=== PATIENT | male | born 1955 | race American Indian/Alaskan Native ===

== ENCOUNTER 2018-03-08 17:24 | Inpatient (IN) | payer MEDICARE ==
[2018-03-08] MEDS ORDERED: ASPIRIN PO ONE (18:10)
--- NOTE | 2018-03-08 18:13 | Emergency Department Report ---
ED Chest Pain HPI - General Chief Complaint: Chest Pain Stated Complaint: CHEST PAIN Time Seen by Provider: 03/08/18 18:00 Source: patient, EMS Mode of arrival: Stretcher Limitations: No Limitations - History of Present Illness Initial Comments: Patient is 62 years old with history of diabetes. Patient brought to the ED via EMS with a chief complaint of chest pain started after patient was started on a treadmill stress test by Dr. Sanaz wills. He describes his chest pain as left-sided chest pain pressure radiated to his left arm. Patient stated that his pain is completely resolved now. Patient was admitted last year for chest pain he had a cardiac cath by Dr. Reed which was negative. Patient denied any shortness of breath, fever or cough. MD Complaint: chest pain Pain Location: left chest Pain Radiation: LUE Severity scale (0 -10): 6 Quality: heaviness Consistency: intermittent Worsens With: exertion - Related Data Home Medications Medication Instructions Recorded Confirmed Last Taken Citalopram Hydrobromide [celeXA] 20 mg PO QDAY 01/23/18 01/23/18 Unknown Doxazosin Mesylate [Cardura] 8 mg PO QDAY 01/23/18 01/23/18 Unknown Previous Rx's Medication Instructions Recorded Last Taken Type Aspirin [Aspirin BABY CHEW TAB] 81 mg PO QDAY #30 tab.chew 01/25/18 Unknown Rx Clopidogrel [Plavix] 75 mg PO QDAY #30 tablet 01/25/18 Unknown Rx Lisinopril [Zestril TAB] 20 mg PO QDAY #30 tablet 01/25/18 Unknown Rx Metoprolol [Lopressor TAB] 50 mg PO BID #60 tablet 01/25/18 Unknown Rx Nitroglycerin [Nitrostat] 0.4 mg SL .Q5MIN PRN #10 tablet 01/25/18 Unknown Rx Pravastatin [Pravachol] 40 mg PO QHS #30 tablet 01/25/18 Unknown Rx glipiZIDE [Glipizide] 10 mg PO BID #60 tablet 01/25/18 Unknown Rx traZODone [Desyrel] 50 mg PO QHS #30 01/25/18 Unknown Rx Allergies Allergy/AdvReac Type Severity Reaction Status Date / Time No Known Allergies Allergy Verified 08/22/14 14:47 Heart Score - HEART Score History: Moderately suspicious EKG: Non-specific Age: 45-65 Risk factors: 1-2 risk factors Troponin: < normal limit HEART Score: 4 - Critical Actions Critical Actions: 4-6 pts:12-16.6% risk of adverse cardiac event. Should be admitted ED Review of Systems ROS: Stated complaint: CHEST PAIN Other details as noted in HPI Comment: All other systems reviewed and negative Constitutional: denies: chills, fever Respiratory: denies: cough, orthopnea, shortness of breath, SOB with exertion, wheezing Cardiovascular: chest pain. denies: palpitations, dyspnea on exertion Gastrointestinal: denies: abdominal pain, nausea, vomiting, diarrhea, constipation, hematemesis, melena, hematochezia Musculoskeletal: denies: back pain Neurological: denies: headache, weakness, numbness, paresthesias, confusion, abnormal gait ED Past Medical Hx - Past Medical History Hx Hypertension: Yes Hx Diabetes: Yes - Social History Smoking Status: Never Smoker Substance Use Type: None - Medications Home Medications: Home Medications Medication Instructions Recorded Confirmed Last Taken Type Citalopram Hydrobromide [celeXA] 20 mg PO QDAY 01/23/18 01/23/18 Unknown History Doxazosin Mesylate [Cardura] 8 mg PO QDAY 01/23/18 01/23/18 Unknown History Aspirin [Aspirin BABY CHEW TAB] 81 mg PO QDAY #30 tab.chew 01/25/18 Unknown Rx Clopidogrel [Plavix] 75 mg PO QDAY #30 tablet 01/25/18 Unknown Rx Lisinopril [Zestril TAB] 20 mg PO QDAY #30 tablet 01/25/18 Unknown Rx Metoprolol [Lopressor TAB] 50 mg PO BID #60 tablet 01/25/18 Unknown Rx Nitroglycerin [Nitrostat] 0.4 mg SL .Q5MIN PRN #10 tablet 01/25/18 Unknown Rx Pravastatin [Pravachol] 40 mg PO QHS #30 tablet 01/25/18 Unknown Rx glipiZIDE [Glipizide] 10 mg PO BID #60 tablet 01/25/18 Unknown Rx traZODone [Desyrel] 50 mg PO QHS #30 01/25/18 01/23/18 Unknown Rx ED Physical Exam - General Limitations: No Limitations General appearance: alert, in no apparent distress - Head Head exam: Present: atraumatic, normocephalic, normal inspection - Eye Eye exam: Present: normal appearance, PERRL - ENT ENT exam: Present: normal exam, normal orophraynx, mucous membranes moist - Neck Neck exam: Present: normal inspection, full ROM. Absent: tenderness, meningismus, lymphadenopathy, thyromegaly - Respiratory Respiratory exam: Present: normal lung sounds bilaterally. Absent: respiratory distress, wheezes, rales, rhonchi, stridor, chest wall tenderness, accessory muscle use, decreased breath sounds, prolonged expiratory - Cardiovascular Cardiovascular Exam: Present: regular rate, normal rhythm, normal heart sounds - GI/Abdominal GI/Abdominal exam: Present: soft, normal bowel sounds. Absent: distended, tenderness, guarding, rebound, rigid, organomegaly, mass, bruit, pulsatile mass - Back Exam Back exam: Present: normal inspection, full ROM. Absent: CVA tenderness (R), CVA tenderness (L), muscle spasm, paraspinal tenderness, vertebral tenderness, rash noted - Neurological Exam Neurological exam: Present: alert, oriented X3, CN II-XII intact, normal gait, reflexes normal - Skin Skin exam: Present: warm, intact, normal color ED Course Vital Signs 03/08/18 17:45 Temperature 97.8 F Pulse Rate 68 Respiratory 16 Rate Blood Pressure 135/89 [Left] O2 Sat by Pulse 98 Oximetry ED Medical Decision Making - Lab Data Result diagrams: 03/08/18 18:16 03/08/18 18:16 - EKG Data -: EKG Interpreted by [facility] EKG shows normal: sinus rhythm Rate: normal - EKG Data Interpretation: no acute changes - Radiology Data Radiology results: report reviewed - Medical Decision Making Mr Chowdhury is 62 years old with history of diabetes. Patient brought to the ED via EMS with a chief complaint of chest pain started after patient was started on a treadmill stress test by Dr. Sanaz wills. He describes his chest pain as left-sided chest pain pressure radiated to his left arm. Patient stated that his pain is completely resolved now. Patient was admitted last year for chest pain he had a cardiac cath by Dr. Reed which was negative. Patient denied any shortness of breath, fever or cough. Patient is chest pain-free now. Patient EKG did not show any acute finding. Troponin is negative so far. I discussed the patient is Dr. Osman, he agreed to admit the patient is service. Critical Care Time: Yes Critical care time in (mins) excluding proc time.: 30 Critical care attestation.: If time is entered above; I have spent that time in minutes in the direct care of this critically ill patient, excluding procedure time. ED Disposition Clinical Impression: Chest pain Disposition: 09 OP ADMIT IP TO THIS HOSP Is pt being admited?: Yes Condition: Stable Instructions: Chest Pain (ED) Referrals: PRIMARY CARE, [Primary Care Provider] - 3-5 Days
[2018-03-08 18:23] LABS: Basophils # (Auto) 0.1 K/mm3 (0.0-0.1); Basophils % (Auto) 1.4 % (0.0-1.8); Eosinophils # (Auto) 0.1 K/mm3 (0.0-0.4); Eosinophils % (Auto) 3.6 % (0.0-4.3); Hematocrit 48.2 % (35.5-45.6); Hemoglobin 16.2 gm/dl (11.8-15.2); Lymphocytes # (Auto) 1.4 K/mm3 (1.2-5.4); Lymphocytes % (Auto) 35.5 % (13.4-35.0); Mean Corpuscular HGB Conc 34 % (32-34); Mean Corpuscular Hemoglobin 30 pg (28-32); Mean Corpuscular Volume 90 fl (84-94); Monocytes # (Auto) 0.3 K/mm3 (0.0-0.8); Platelet Count 193 K/mm3 (140-440); Red Blood Count 5.36 M/mm3 (3.65-5.03); Red Cell Distribution Width 13.5 % (13.2-15.2)
[2018-03-08 18:32] LABS: INR 0.95 (0.87-1.13)
[2018-03-08 18:33] LABS: Partial Thromboplastin Time 24.8 Sec. (24.2-36.6)
[2018-03-08 18:45] LABS: Alanine Aminotransferase 14 units/L (7-56); Albumin 4.3 g/dL (3.9-5); BUN/Creatinine Ratio 14; Blood Urea Nitrogen 14 mg/dL (9-20); Calcium 9.3 mg/dL (8.4-10.2); Hemolysis Index 17; Lipase 24 units/L (13-60)
--- NOTE | 2018-03-08 20:03 | XRay Report ---
FINAL REPORT EXAM: XR CHEST ROUTINE 2V HISTORY: Chest Pain TECHNIQUE: Frontal and lateral chest x-ray. PRIORS: 24 January 2018. FINDINGS: Cardiac and mediastinal silhouette within normal limits. Lungs are normally expanded. No significant vascular congestion. No focal consolidation, apparent pleural effusion or pneumothorax. Bony thorax grossly unremarkable. IMPRESSION: 1. No acute findings.
[2018-03-08] MEDS ORDERED: ASPIRIN ONE (20:36)
--- NOTE | 2018-03-08 22:04 | History and Physical Report ---
History of Present Illness Date of examination: 03/08/18 Date of admission: 03/08/18 20:03 Chief complaint: Chest pain during stress test at [facility] History of present illness: History of Present Illness: 62 years old with history of diabetes brought to the ED via EMS with a chief complaint of chest pain started after patient was started on a treadmill stress test by Dr. Anaya's office. He describes his chest pain as left-sided chest pain pressure radiated to his left arm. Patient stated that his pain is completely resolved now. Patient was admitted last year for chest pain and had a cardiac cath by Dr. Gregory which was negative. Patient denied any shortness of breath, fever or cough.Recent cath in February Past Medical History Hx Hypertension: Yes Hx Diabetes: Yes Social History Smoking Status: Never Smoker Substance Use Type: None Surgical history N/a Family History Htn - Medications Home Medications: Home Medications Medication Instructions Recorded Confirmed Last Taken Type Citalopram Hydrobromide [celeXA] 20 mg PO QDAY 01/23/18 01/23/18 Unknown History Doxazosin Mesylate [Cardura] 8 mg PO QDAY 01/23/18 01/23/18 Unknown History Aspirin [Aspirin BABY CHEW TAB] 81 mg PO QDAY #30 tab.chew 01/25/18 Unknown Rx Clopidogrel [Plavix] 75 mg PO QDAY #30 tablet 01/25/18 Unknown Rx Lisinopril [Zestril TAB] 20 mg PO QDAY #30 tablet 01/25/18 Unknown Rx Metoprolol [Lopressor TAB] 50 mg PO BID #60 tablet 01/25/18 Unknown Rx Nitroglycerin [Nitrostat] 0.4 mg SL .Q5MIN PRN #10 tablet 01/25/18 Unknown Rx Pravastatin [Pravachol] 40 mg PO QHS #30 tablet 01/25/18 Unknown Rx glipiZIDE [Glipizide] 10 mg PO BID #60 tablet 01/25/18 Unknown Rx traZODone [Desyrel] 50 mg PO QHS #30 01/25/18 01/23/18 Unknown Rx Review of Systems ROS: Stated complaint: CHEST PAIN Other details as noted in HPI Comment: All other systems reviewed and negative Constitutional: denies: chills, fever Respiratory: denies: cough, orthopnea, shortness of breath, SOB with exertion, wheezing Cardiovascular: chest pain. denies: palpitations, dyspnea on exertion Gastrointestinal: denies: abdominal pain, nausea, vomiting, diarrhea, constipation, hematemesis, melena, hematochezia Musculoskeletal: denies: back pain Neurological: denies: headache, weakness, numbness, paresthesias, confusion, abnormal gait Medications and Allergies Allergies Allergy/AdvReac Type Severity Reaction Status Date / Time No Known Allergies Allergy Verified 08/22/14 14:47 Home Medications Medication Instructions Recorded Confirmed Last Taken Type Citalopram Hydrobromide [celeXA] 20 mg PO QDAY 01/23/18 03/08/18 Unknown History Doxazosin Mesylate [Cardura] 8 mg PO QDAY 01/23/18 03/08/18 Unknown History Aspirin [Aspirin BABY CHEW TAB] 81 mg PO QDAY #30 tab.chew 01/25/18 03/08/18 Unknown Rx Clopidogrel [Plavix] 75 mg PO QDAY #30 tablet 01/25/18 03/08/18 Unknown Rx Lisinopril [Zestril TAB] 20 mg PO QDAY #30 tablet 01/25/18 03/08/18 Unknown Rx Metoprolol [Lopressor TAB] 50 mg PO BID #60 tablet 01/25/18 03/08/18 Unknown Rx Nitroglycerin [Nitrostat] 0.4 mg SL .Q5MIN PRN #10 tablet 01/25/18 03/08/18 Unknown Rx Pravastatin [Pravachol] 40 mg PO QHS #30 tablet 01/25/18 03/08/18 Unknown Rx glipiZIDE [Glipizide] 10 mg PO BID #60 tablet 01/25/18 03/08/18 Unknown Rx traZODone [Desyrel] 50 mg PO QHS #30 01/25/18 03/08/18 Unknown Rx Exam - Constitutional Vitals: Temp Pulse Resp BP Pulse Ox 97.8 F 78 18 147/78 100 03/08/18 17:45 03/08/18 22:01 03/08/18 22:01 03/08/18 22:01 03/08/18 22:01 General appearance: Present: no acute distress, well-nourished - EENT Eyes: Present: PERRL ENT: hearing intact, clear oral mucosa - Neck Neck: Present: supple, normal ROM - Respiratory Respiratory effort: normal Respiratory: bilateral: CTA - Cardiovascular Heart rate: 78 Rhythm: regular Heart Sounds: Present: S1 & S2. Absent: rub, click - Extremities Extremities: no ischemia, pulses intact, pulses symmetrical, No edema Peripheral Pulses: within normal limits - Abdominal General gastrointestinal: Present: soft, non-tender, non-distended, normal bowel sounds Male genitourinary: Present: normal - Rectal Rectal Exam: deferred - Integumentary Integumentary: Present: clear, warm, dry - Musculoskeletal Musculoskeletal: gait normal, strength equal bilaterally - Psychiatric Psychiatric: appropriate mood/affect, intact judgment & insight - Neurologic Neurologic: CNII-XII intact, moves all extremities - Allied Health Allied health notes reviewed: nursing, case management Results - Labs CBC & Chem 7: 03/09/18 04:23 03/09/18 04:23 Labs: Laboratory Last Values WBC 4.0 K/mm3 (4.5-11.0) L 03/08/18 18:16 RBC 5.36 M/mm3 (3.65-5.03) H 03/08/18 18:16 Hgb 16.2 gm/dl (11.8-15.2) H 03/08/18 18:16 Hct 48.2 % (35.5-45.6) H 03/08/18 18:16 MCV 90 fl (84-94) 03/08/18 18:16 MCH 30 pg (28-32) 03/08/18 18:16 MCHC 34 % (32-34) 03/08/18 18:16 RDW 13.5 % (13.2-15.2) 03/08/18 18:16 Plt Count 193 K/mm3 (140-440) 03/08/18 18:16 Lymph % (Auto) 35.5 % (13.4-35.0) H 03/08/18 18:16 [place] % (Auto) 7.0 % (0.0-7.3) 03/08/18 18:16 Eos % (Auto) 3.6 % (0.0-4.3) 03/08/18 18:16 Baso % (Auto) 1.4 % (0.0-1.8) 03/08/18 18:16 Lymph # 1.4 K/mm3 (1.2-5.4) 03/08/18 18:16 [place] # 0.3 K/mm3 (0.0-0.8) 03/08/18 18:16 Eos # 0.1 K/mm3 (0.0-0.4) 03/08/18 18:16 Baso # 0.1 K/mm3 (0.0-0.1) 03/08/18 18:16 Seg Neutrophils % 52.5 % (40.0-70.0) 03/08/18 18:16 Seg Neutrophils # 2.1 K/mm3 (1.8-7.7) 03/08/18 18:16 PT 13.2 Sec. (12.2-14.9) 03/08/18 18:16 INR 0.95 (0.87-1.13) 03/08/18 18:16 APTT 24.8 Sec. (24.2-36.6) 03/08/18 18:16 D-Dimer 158.93 ng/mlDDU (0-234) 03/08/18 18:16 Sodium 139 mmol/L (137-145) 03/08/18 18:16 Potassium 4.3 mmol/L (3.6-5.0) 03/08/18 18:16 Chloride 99.8 mmol/L (98-107) 03/08/18 18:16 Carbon Dioxide 28 mmol/L (22-30) 03/08/18 18:16 Anion Gap 16 mmol/L 03/08/18 18:16 BUN 14 mg/dL (9-20) 03/08/18 18:16 Creatinine 1.0 mg/dL (0.8-1.5) 03/08/18 18:16 Estimated GFR > 60 ml/min 03/08/18 18:16 BUN/Creatinine Ratio 14 % 03/08/18 18:16 Glucose 197 mg/dL (75-100) H 03/08/18 18:16 Calcium 9.3 mg/dL (8.4-10.2) 03/08/18 18:16 Total Bilirubin 0.50 mg/dL (0.1-1.2) 03/08/18 18:16 AST 14 units/L (5-40) 03/08/18 18:16 ALT 14 units/L (7-56) 03/08/18 18:16 Alkaline Phosphatase 83 units/L (35-129) 03/08/18 18:16 Troponin T < 0.010 ng/mL (0.00-0.029) 03/08/18 18:16 Total Protein 7.7 g/dL (6.3-8.2) 03/08/18 18:16 Albumin 4.3 g/dL (3.9-5) 03/08/18 18:16 Albumin/Globulin Ratio 1.3 % 03/08/18 18:16 Lipase 24 units/L (13-60) 03/08/18 18:16 Short CBC 03/08/18 03/09/18 Range/Units 18:16 04:23 WBC 4.0 L 3.1 L (4.5-11.0) K/mm3 Hgb 16.2 H 15.5 H (11.8-15.2) gm/dl Hct 48.2 H 44.6 (35.5-45.6) % Plt Count 193 191 (140-440) K/mm3 BMP 03/08/18 03/09/18 18:16 04:23 Sodium 139 140 Potassium 4.3 4.0 Chloride 99.8 104.0 Carbon Dioxide 28 26 BUN 14 12 Creatinine 1.0 0.8 Glucose 197 H 186 H Calcium 9.3 8.5 Cardiac Enzymes 03/08/18 03/09/18 03/09/18 Range/Units 18:16 00:01 04:23 Troponin T < 0.010 < 0.010 < 0.010 (0.00-0.029) ng/mL Liver Function 03/08/18 03/09/18 Range/Units 18:16 04:23 Total Bilirubin 0.50 0.40 (0.1-1.2) mg/dL AST 14 14 (5-40) units/L ALT 14 12 (7-56) units/L Alkaline Phosphatase 83 79 (35-129) units/L Albumin 4.3 3.7 L (3.9-5) g/dL Assessment and Plan Advance Directives: Yes (Full code) VTE prophylaxis?: Chemical Plan of care discussed with patient/family: Yes - Patient Problems (1) Chest pain Current Visit: Yes Status: Acute Qualifiers: Chest pain type: chest pain due to myocardial ischemia Ischemic chest pain type: stable angina pectoris Qualified Code(s): I20.8 - Other forms of angina pectoris Plan to address problem: Will defer to cardiolgy reg Streess test /Cath Lexiscan not ordered (2) HTN (hypertension) Current Visit: Yes Status: Chronic Qualifiers: Hypertension type: essential hypertension Qualified Code(s): I10 - Essential (primary) hypertension Plan to address problem: Cont antihypertensives (3) HLD (hyperlipidemia) Current Visit: Yes Status: Chronic Qualifiers: Hyperlipidemia type: mixed hyperlipidemia Qualified Code(s): E78.2 - Mixed hyperlipidemia Plan to address problem: Cont statins (4) T2DM (type 2 diabetes mellitus) Current Visit: Yes Status: Chronic Qualifiers: Diabetes mellitus jail insulin use: without jail use Plan to address problem: Cont oral Hypoglycemics and coverage (5) Depression Current Visit: Yes Status: Chronic Qualifiers: Depression Type: unspecified Qualified Code(s): F32.9 - Major depressive disorder, single episode, unspecified Plan to address problem: Cont antidepressants (6) DVT prophylaxis Current Visit: Yes Status: Acute Plan to address problem: On Lovenox GI prophylaxis initiated
[2018-03-08] MEDS ORDERED: NITROSTAT SL PRN (23:44)
[2018-03-08] MEDS ORDERED: NACL 0.9% 1000 ML 1,000 ML IV SCH (23:45)
[2018-03-08] MEDS ORDERED: PERCOCET 5/325 PO PRN (23:46)
[2018-03-08] MEDS ORDERED: TYLENOL PO PRN (23:46)
[2018-03-08] MEDS ORDERED: MORPHINE IV PRN (23:46)
[2018-03-08] MEDS ORDERED: SODIUM CHLORIDE FLUSH SYRINGE 10 ML IV PRN (23:46)
[2018-03-08] MEDS ORDERED: DILAUDID IV PRN (23:46)
[2018-03-08] MEDS ORDERED: ZOFRAN IV PRN (23:46)
[2018-03-09] MEDS: GLUCOTROL PO SCH ×3 (01:35→16:51)
[2018-03-09 05:41] LABS: Hematocrit 44.6 % (35.5-45.6); Hemoglobin 15.5 gm/dl (11.8-15.2); Mean Corpuscular HGB Conc 35 % (32-34); Mean Corpuscular Hemoglobin 31 pg (28-32); Mean Corpuscular Volume 89 fl (84-94); Platelet Count 191 K/mm3 (140-440); Red Blood Count 5.03 M/mm3 (3.65-5.03); Red Cell Distribution Width 13.5 % (13.2-15.2)
[2018-03-09 06:19] LABS: Alanine Aminotransferase 12 units/L (7-56); Albumin 3.7 g/dL (3.9-5); BUN/Creatinine Ratio 15; Blood Urea Nitrogen 12 mg/dL (9-20); Calcium 8.5 mg/dL (8.4-10.2); Hemolysis Index 6
[2018-03-09 07:55] LABS: Basophils % (Manual) 0 % (0.0-1.8); Total Cells Counted 100
[2018-03-09 07:57] LABS: Anisocytosis 1+; Platelet Estimate Consistent w Auto; Poikilocytosis 1+
[2018-03-09 07:58] LABS: Ovalocytes Few
[2018-03-09] MEDS ORDERED: LOPRESSOR PO SCH (10:00)
[2018-03-09] MEDS ORDERED: CARDURA PO SCH (10:00)
[2018-03-09] MEDS ORDERED: ZESTRIL PO SCH (10:00)
[2018-03-09] MEDS: celeXA PO SCH (10:32)
[2018-03-09] MEDS: PLAVIX PO SCH (10:33)
[2018-03-09] MEDS: BABY ASPIRIN PO SCH (10:33)
[2018-03-09] MEDS: SODIUM CHLORIDE FLUSH SYRINGE 10 ML IV SCH ×2 (10:34→21:11)
--- NOTE | 2018-03-09 11:47 | Consultation ---
History of Present Illness Consult date: 03/09/18 Requesting physician: MANAV KEY Consult reason: chest pain History of present illness: The patient has a chronic history of exertional precordial chest pain. In fact , he was admitted in January 2018 with chest pain and positive cardiac enzymes. Coronary angiography at that time revealed normal coronary arteries. Ejection fraction was 55-60%. Since his discharge, he has continued to experience exertional chest pain. He apparently complained to his electrical prospecting engineer, Dr. Gregory, about palpitations. He was scheduled to undergo a treadmill exercise stress test yesterday to assess for possible arrhythmias during exercise. At about 4 minutes into the test, he developed chest pain leading to termination of the test which persisted into the late recovery phase. His stress EKG was reportedly negative for ischemia at the stress level obtained. Past History Past Medical History: acute [place] (NSTEMI 01/28.), diabetes, hypertension, other ( Normal coronary arteries in January 2018 with percent EF of 55-60%.) Past Surgical History: No surgical history Social history: (has 1 child). denies: smoking, alcohol abuse Family history: no significant family history Medications and Allergies Allergies Allergy/AdvReac Type Severity Reaction Status Date / Time No Known Allergies Allergy Verified 08/22/14 14:47 Home Medications Medication Instructions Recorded Confirmed Last Taken Type Citalopram Hydrobromide [celeXA] 20 mg PO QDAY 01/23/18 03/08/18 Unknown History Doxazosin Mesylate [Cardura] 8 mg PO QDAY 01/23/18 03/08/18 Unknown History Aspirin [Aspirin BABY CHEW TAB] 81 mg PO QDAY #30 tab.chew 01/25/18 03/08/18 Unknown Rx Clopidogrel [Plavix] 75 mg PO QDAY #30 tablet 01/25/18 03/08/18 Unknown Rx Lisinopril [Zestril TAB] 20 mg PO QDAY #30 tablet 01/25/18 03/08/18 Unknown Rx Metoprolol [Lopressor TAB] 50 mg PO BID #60 tablet 01/25/18 03/08/18 Unknown Rx Nitroglycerin [Nitrostat] 0.4 mg SL .Q5MIN PRN #10 tablet 01/25/18 03/08/18 Unknown Rx Pravastatin [Pravachol] 40 mg PO QHS #30 tablet 01/25/18 03/08/18 Unknown Rx glipiZIDE [Glipizide] 10 mg PO BID #60 tablet 01/25/18 03/08/18 Unknown Rx traZODone [Desyrel] 50 mg PO QHS #30 01/25/18 03/08/18 Unknown Rx Active Meds: Active Medications Acetaminophen (Tylenol) 650 mg PO Q4H PRN PRN Reason: Pain MILD(1-3)/Fever >100.5/DENT Aspirin (Baby Aspirin) 81 mg PO QDAY [facility] Last Admin: 03/09/18 10:33 Dose: 81 mg Citalopram Hydrobromide (Celexa) 20 mg PO QDAY [facility] Last Admin: 03/09/18 10:32 Dose: 20 mg Clopidogrel Bisulfate (Plavix) 75 mg PO QDAY [facility] Last Admin: 03/09/18 10:33 Dose: 75 mg Doxazosin Mesylate (Cardura) 8 mg PO QDAY [facility] Last Admin: 03/09/18 10:32 Dose: 8 mg Enoxaparin Sodium (Lovenox) 40 mg SUB-Q QDAY@2200 [facility] Glipizide (Glucotrol) 10 mg PO BIDDIAB [facility] Last Admin: 03/09/18 08:00 Dose: 10 mg Hydromorphone HCl (Dilaudid) 0.5 mg IV Q3H PRN PRN Reason: Pain , Severe (7-10) Sodium Chloride (Nacl 0.9% 1000 Ml) 1,000 mls @ 42 mls/hr IV DIRECT [facility] Insulin Human Lispro (Humalog) 0 unit SUB-Q [facility]; Protocol Lisinopril (Zestril) 20 mg PO QDAY [facility] Last Admin: 03/09/18 10:33 Dose: 20 mg Metoprolol Tartrate (Lopressor) 50 mg PO BID [facility] Last Admin: 03/09/18 10:33 Dose: 50 mg Morphine Sulfate (Morphine) 2 mg IV Q4H PRN PRN Reason: Pain, Moderate (4-6) Nitroglycerin (Nitrostat) 0.4 mg SL .Q5MIN PRN PRN Reason: Chest Pain Ondansetron HCl (Zofran) 4 mg IV Q8H PRN PRN Reason: Nausea And Vomiting Oxycodone/Acetaminophen (Percocet 5/325) 1 tab PO Q6H PRN PRN Reason: Pain, Moderate (4-6) Pravastatin Sodium (Pravachol) 40 mg PO QHS [facility] Sodium Chloride (Sodium Chloride Flush Syringe 10 Ml) 10 ml IV BID [facility] Last Admin: 03/09/18 10:34 Dose: 10 ml Sodium Chloride (Sodium Chloride Flush Syringe 10 Ml) 10 ml IV PRN PRN PRN Reason: LINE FLUSH Trazodone HCl (Desyrel) 50 mg PO QHS [facility] Review of Systems Constitutional: no fever, no chills Ears, nose, mouth and throat: no ear pain, no ear discharge, no sore throat Cardiovascular: chest pain, no shortness of breath Respiratory: no cough, no hemoptysis Gastrointestinal: no abdominal pain, no nausea, no vomiting, no diarrhea, no constipation Genitourinary Male: no dysuria, no urinary frequency Rectal: no pain, no bleeding Musculoskeletal: no neck stiffness, no neck pain, no myalgias Integumentary: no rash, no pruritis Neurological: no weakness, no parathesias, no headaches Endocrine: no cold intolerance, no heat intolerance Hematologic/Lymphatic: no easy bruising, no easy bleeding Allergic/Immunologic: no urticaria, no wheezing Physical Examination Vital Signs Last Vital Signs Temp 97.8 F 03/09/18 11:11 Pulse 81 03/09/18 11:11 Resp 20 03/09/18 11:11 BP 147/98 03/09/18 11:11 Pulse Ox 97 03/09/18 11:11 General appearance: no acute distress HEENT: Positive: EOMI, Normocephaly, Mucus Membranes Moist Neck: Positive: neck supple, trachea midline Cardiac: Positive: Reg Rate and Rhythm, S1/S2 Lungs: Positive: clear to auscultation Neuro: Positive: Grossly Intact Skin: Positive: Clear. Negative: Rash Musculoskeletal: Normal Range of Motion Extremities: Present: normal. Absent: edema Results 03/09/18 04:23 03/09/18 04:23 Cardiac Enzymes 03/08/18 03/09/18 Range/Units 18:16 04:23 AST 14 14 (5-40) units/L Coagulation 03/08/18 Range/Units 18:16 PT 13.2 (12.2-14.9) Sec. INR 0.95 (0.87-1.13) APTT 24.8 (24.2-36.6) Sec. CBC 03/08/18 03/09/18 Range/Units 18:16 04:23 WBC 4.0 L 3.1 L (4.5-11.0) K/mm3 RBC 5.36 H 5.03 (3.65-5.03) M/mm3 Hgb 16.2 H 15.5 H (11.8-15.2) gm/dl Hct 48.2 H 44.6 (35.5-45.6) % Plt Count 193 191 (140-440) K/mm3 Lymph # 1.4 (1.2-5.4) K/mm3 [place] # 0.3 (0.0-0.8) K/mm3 Eos # 0.1 (0.0-0.4) K/mm3 Baso # 0.1 (0.0-0.1) K/mm3 Comprehensive Metabolic Panel 03/08/18 03/09/18 Range/Units 18:16 04:23 Sodium 139 140 (137-145) mmol/L Potassium 4.3 4.0 (3.6-5.0) mmol/L Chloride 99.8 104.0 (98-107) mmol/L Carbon Dioxide 28 26 (22-30) mmol/L BUN 14 12 (9-20) mg/dL Creatinine 1.0 0.8 (0.8-1.5) mg/dL Glucose 197 H 186 H (75-100) mg/dL Calcium 9.3 8.5 (8.4-10.2) mg/dL AST 14 14 (5-40) units/L ALT 14 12 (7-56) units/L Alkaline Phosphatase 83 79 (35-129) units/L Total Protein 7.7 6.7 (6.3-8.2) g/dL Albumin 4.3 3.7 L (3.9-5) g/dL - Imaging and Cardiology EKG: image reviewed EKG interpretations - Telemetry EKG Rhythm: Sinus Rhythm - EKG Sinus rhythms and dysrhythmias: sinus rhythm Assessment and Plan Optimize beta wilson therapy. Add oral nitrates. If he remains stable in a.m. , he may be discharged home. - Patient Problems (1) Exertional angina Current Visit: Yes Status: Acute (2) Normal coronary arteries Current Visit: Yes Status: Chronic (3) Cardiac microvascular disease Current Visit: Yes Status: Suspected (4) HTN (hypertension) Current Visit: Yes Status: Chronic Qualifiers: Hypertension type: essential hypertension Qualified Code(s): I10 - Essential (primary) hypertension (5) T2DM (type 2 diabetes mellitus) Current Visit: Yes Status: Chronic Qualifiers: Diabetes mellitus buttermaker continuous churn insulin use: without buttermaker continuous churn use
[2018-03-09] MEDS ORDERED: IMDUR PO SCH (13:00)
[2018-03-09] MEDS: LOPRESSOR PO SCH ×3 (14:00→20:39)
--- NOTE | 2018-03-09 18:54 | Progress Note ---
Assessment and Plan Assessment and plan: --Chest pain; rule out acute coronary syndrome Patient had recent negative heart catheterization Last month optimize current cardiac medications, follow cardiology recommendations --Hypertension; moderate control Continue current antihypertensives and when necessary medications --Dyslipidemia; on lipid-lowering meds --Type 2 diabetes mellitus; Accu-Chek sliding scale coverage and ADA diet and insulin as needed, hemoglobin A1c 11.4 --Mild malnutrition; albumin 3.7, supportive care --DVT prophylaxis; Lovenox Follow cardiology evaluation and recommendations Possible discharge in 1-2 days if stable History Interval history: 62-year-old male patient with significant history of type 2 diabetes mellitus hypertension was admitted through emergency room with chest pain while doing the stress test in pan dumper's office. Admitted for further evaluation and management Today patient feels better note episodes of chest pain or shortness of breath Alert awake oriented 3, Vital signs reviewed Hospitalist Physical - Constitutional Vitals: Temp Pulse Resp BP Pulse Ox 97.9 F 73 20 135/85 97 03/09/18 16:35 03/09/18 16:35 03/09/18 16:35 03/09/18 16:35 03/09/18 16:35 General appearance: Present: no acute distress, well-nourished, obese - EENT Eyes: Present: PERRL, EOM intact - Neck Neck: Present: supple, normal ROM - Respiratory Respiratory effort: normal Respiratory: bilateral: diminished, negative: rales, rhonchi, wheezing - Cardiovascular Rhythm: regular Heart Sounds: Present: S1 & S2 - Extremities Extremities: no ischemia, No edema - Abdominal General gastrointestinal: soft, non-tender, non-distended, normal bowel sounds - Integumentary Integumentary: Present: clear, warm - Psychiatric Psychiatric: appropriate mood/affect, cooperative - Neurologic Neurologic: CNII-XII intact, moves all extremities Results - Labs CBC & Chem 7: 03/09/18 04:23 03/09/18 04:23 Labs: Laboratory Last Values WBC 3.1 K/mm3 (4.5-11.0) L 03/09/18 04:23 RBC 5.03 M/mm3 (3.65-5.03) 03/09/18 04:23 Hgb 15.5 gm/dl (11.8-15.2) H 03/09/18 04:23 Hct 44.6 % (35.5-45.6) 03/09/18 04:23 MCV 89 fl (84-94) 03/09/18 04:23 MCH 31 pg (28-32) 03/09/18 04:23 MCHC 35 % (32-34) H 03/09/18 04:23 RDW 13.5 % (13.2-15.2) 03/09/18 04:23 Plt Count 191 K/mm3 (140-440) 03/09/18 04:23 Lymph % (Auto) 35.5 % (13.4-35.0) H 03/08/18 18:16 [place] % (Auto) 7.0 % (0.0-7.3) 03/08/18 18:16 Eos % (Auto) 3.6 % (0.0-4.3) 03/08/18 18:16 Baso % (Auto) 1.4 % (0.0-1.8) 03/08/18 18:16 Lymph # 1.4 K/mm3 (1.2-5.4) 03/08/18 18:16 [place] # 0.3 K/mm3 (0.0-0.8) 03/08/18 18:16 Eos # 0.1 K/mm3 (0.0-0.4) 03/08/18 18:16 Baso # 0.1 K/mm3 (0.0-0.1) 03/08/18 18:16 Add Manual Diff Complete 03/09/18 04:23 Total Counted 100 03/09/18 04:23 Seg Neutrophils % 52.5 % (40.0-70.0) 03/08/18 18:16 Seg Neuts % (Manual) 42.0 % (40.0-70.0) 03/09/18 04:23 Band Neutrophils % 0 % 03/09/18 04:23 Lymphocytes % (Manual) 44.0 % (13.4-35.0) H 03/09/18 04:23 Reactive Lymphs % (Man) 0 % 03/09/18 04:23 Monocytes % (Manual) 8.0 % (0.0-7.3) H 03/09/18 04:23 Eosinophils % (Manual) 6.0 % (0.0-4.3) H 03/09/18 04:23 Basophils % (Manual) 0 % (0.0-1.8) 03/09/18 04:23 Metamyelocytes % 0 % 03/09/18 04:23 Myelocytes % 0 % 03/09/18 04:23 Promyelocytes % 0 % 03/09/18 04:23 Blast Cells % 0 % 03/09/18 04:23 Nucleated RBC % Not Reportable 03/09/18 04:23 Seg Neutrophils # 2.1 K/mm3 (1.8-7.7) 03/08/18 18:16 Seg Neutrophils # Man 1.3 K/mm3 (1.8-7.7) L 03/09/18 04:23 Band Neutrophils # 0.0 K/mm3 03/09/18 04:23 Lymphocytes # (Manual) 1.4 K/mm3 (1.2-5.4) 03/09/18 04:23 Abs React Lymphs (Man) 0.0 K/mm3 03/09/18 04:23 Monocytes # (Manual) 0.2 K/mm3 (0.0-0.8) 03/09/18 04:23 Eosinophils # (Manual) 0.2 K/mm3 (0.0-0.4) 03/09/18 04:23 Basophils # (Manual) 0.0 K/mm3 (0.0-0.1) 03/09/18 04:23 Metamyelocytes # 0.0 K/mm3 03/09/18 04:23 Myelocytes # 0.0 K/mm3 03/09/18 04:23 Promyelocytes # 0.0 K/mm3 03/09/18 04:23 Blast Cells # 0.0 K/mm3 03/09/18 04:23 WBC Morphology Not Reportable 03/09/18 04:23 Hypersegmented Neuts Not Reportable 03/09/18 04:23 Hyposegmented Neuts Not Reportable 03/09/18 04:23 Hypogranular Neuts Not Reportable 03/09/18 04:23 Smudge Cells Not Reportable 03/09/18 04:23 Toxic Granulation Not Reportable 03/09/18 04:23 Toxic Vacuolation Not Reportable 03/09/18 04:23 Dohle Bodies Not Reportable 03/09/18 04:23 Pelger-Huet Anomaly Not Reportable 03/09/18 04:23 Luis Rods Not Reportable 03/09/18 04:23 Platelet Estimate Consistent w auto 03/09/18 04:23 Clumped Platelets Not Reportable 03/09/18 04:23 Plt Clumps, EDTA Not Reportable 03/09/18 04:23 Large Platelets Not Reportable 03/09/18 04:23 Giant Platelets Not Reportable 03/09/18 04:23 Platelet Satelliting Not Reportable 03/09/18 04:23 Plt Morphology Comment Not Reportable 03/09/18 04:23 RBC Morphology Not Reportable 03/09/18 04:23 Dimorphic RBCs Not Reportable 03/09/18 04:23 Polychromasia Not Reportable 03/09/18 04:23 Hypochromasia Not Reportable 03/09/18 04:23 Poikilocytosis 1+ 03/09/18 04:23 Anisocytosis 1+ 03/09/18 04:23 Microcytosis Not Reportable 03/09/18 04:23 Macrocytosis Not Reportable 03/09/18 04:23 Spherocytes Not Reportable 03/09/18 04:23 Pappenheimer Bodies Not Reportable 03/09/18 04:23 Sickle Cells Not Reportable 03/09/18 04:23 Target Cells Not Reportable 03/09/18 04:23 Tear Drop Cells Not Reportable 03/09/18 04:23 Ovalocytes Few 03/09/18 04:23 Helmet Cells Not Reportable 03/09/18 04:23 [place] Bodies Not Reportable 03/09/18 04:23 Adrian Rings Not Reportable 03/09/18 04:23 Nigel Cells Not Reportable 03/09/18 04:23 Bite Cells Not Reportable 03/09/18 04:23 Crenated Cell Not Reportable 03/09/18 04:23 Elliptocytes Not Reportable 03/09/18 04:23 Acanthocytes (Spur) Not Reportable 03/09/18 04:23 Rouleaux Not Reportable 03/09/18 04:23 Hemoglobin C Crystals Not Reportable 03/09/18 04:23 Schistocytes Not Reportable 03/09/18 04:23 Malaria parasites Not Reportable 03/09/18 04:23 Daniel Bodies Not Reportable 03/09/18 04:23 Hem Pathologist Commnt No 03/09/18 04:23 PT 13.2 Sec. (12.2-14.9) 03/08/18 18:16 INR 0.95 (0.87-1.13) 03/08/18 18:16 APTT 24.8 Sec. (24.2-36.6) 03/08/18 18:16 D-Dimer 158.93 ng/mlDDU (0-234) 03/08/18 18:16 Sodium 140 mmol/L (137-145) 03/09/18 04:23 Potassium 4.0 mmol/L (3.6-5.0) 03/09/18 04:23 Chloride 104.0 mmol/L (98-107) 03/09/18 04:23 Carbon Dioxide 26 mmol/L (22-30) 03/09/18 04:23 Anion Gap 14 mmol/L 03/09/18 04:23 BUN 12 mg/dL (9-20) 03/09/18 04:23 Creatinine 0.8 mg/dL (0.8-1.5) 03/09/18 04:23 Estimated GFR > 60 ml/min 03/09/18 04:23 BUN/Creatinine Ratio 15 % 03/09/18 04:23 Glucose 186 mg/dL (75-100) H 03/09/18 04:23 Hemoglobin A1c 11.4 % (4-6) H 03/09/18 00:01 Calcium 8.5 mg/dL (8.4-10.2) 03/09/18 04:23 Total Bilirubin 0.40 mg/dL (0.1-1.2) 03/09/18 04:23 AST 14 units/L (5-40) 03/09/18 04:23 ALT 12 units/L (7-56) 03/09/18 04:23 Alkaline Phosphatase 79 units/L (35-129) 03/09/18 04:23 Troponin T < 0.010 ng/mL (0.00-0.029) 03/09/18 11:44 Total Protein 6.7 g/dL (6.3-8.2) 03/09/18 04:23 Albumin 3.7 g/dL (3.9-5) L 03/09/18 04:23 Albumin/Globulin Ratio 1.2 % 03/09/18 04:23 Lipase 24 units/L (13-60) 03/08/18 18:16
[2018-03-09] MEDS: HumaLOG SUB-Q SCH ×2 (20:44→21:09)
[2018-03-09] MEDS ORDERED: LOVENOX SUB-Q SCH (22:00)
[2018-03-09] MEDS ORDERED: DESYREL PO SCH (22:00)
[2018-03-09] MEDS ORDERED: PRAVACHOL PO SCH (22:00)
[2018-03-10] MEDS: HumaLOG SUB-Q SCH ×3 (07:30→16:30)
[2018-03-10] MEDS: celeXA PO SCH (09:20)
[2018-03-10] MEDS: GLUCOTROL PO SCH ×2 (09:20→18:35)
[2018-03-10] MEDS: BABY ASPIRIN PO SCH (09:21)
[2018-03-10] MEDS: ZESTRIL PO SCH ×2 (09:31→09:39)
[2018-03-10] MEDS: PLAVIX PO SCH (09:35)
[2018-03-10] MEDS: SODIUM CHLORIDE FLUSH SYRINGE 10 ML IV SCH (09:36)
--- NOTE | 2018-03-10 09:58 | Progress Note ---
Assessment and Plan BPs borderline hypotensive this AM - reduce lisinopril and Imdur doses. Encourage ambulation. Pending BPs are WNL and pt is able to ambulate without complaints of chest pain, possible d/c home this afternoon. The patient has been seen in conjunction with Dr. Merida who agrees with the assessment and plan of care. - Patient Problems (1) Exertional angina Current Visit: Yes Status: Acute (2) Normal coronary arteries Current Visit: Yes Status: Chronic (3) Cardiac microvascular disease Current Visit: Yes Status: Suspected (4) HTN (hypertension) Current Visit: Yes Status: Chronic Qualifiers: Hypertension type: essential hypertension Qualified Code(s): I10 - Essential (primary) hypertension (5) T2DM (type 2 diabetes mellitus) Current Visit: Yes Status: Chronic Qualifiers: Diabetes mellitus group home insulin use: without group home use Subjective Date of service: 03/10/18 Principal diagnosis: cp Interval history: pt resting comfortably at bedside, no current cardiac complaints. at bedside. BPs noted to be borderline hypotensive this AM. Objective Last Vital Signs Temp 97.9 F 03/10/18 07:58 Pulse 66 03/10/18 09:39 Resp 20 03/10/18 07:58 BP 103/62 03/10/18 09:39 Pulse Ox 96 03/10/18 08:26 - Physical Examination HEENT: Positive: EOMI, Normocephaly, Mucus Membranes Moist Neck: Positive: neck supple, trachea midline Cardiac: Positive: Reg Rate and Rhythm, S1/S2 Lungs: Positive: clear to auscultation Neuro: Positive: Grossly Intact Skin: Positive: Clear. Negative: Rash Musculoskeletal: Normal Range of Motion Extremities: Present: normal. Absent: edema - Imaging and Cardiology EKG: image reviewed - Telemetry EKG Rhythm: Sinus Rhythm - EKG Sinus rhythms and dysrhythmias: sinus rhythm
[2018-03-10] MEDS ORDERED: IMDUR PO SCH ×2 (10:00)
[2018-03-10] MEDS ORDERED: CARDURA PO SCH (10:00)
[2018-03-10] MEDS ORDERED: LOPRESSOR PO SCH (10:00)
--- NOTE | 2018-03-10 16:41 | Discharge Summary ---
Providers - Providers Date of Admission: 03/08/18 20:03 Date of discharge: 03/10/18 Attending physician: MICHAEL HUNT 03/08/18 23:46 Consult to Physician [CONS] Routine Comment: Consulting Provider: PIERCE JAIMES Physician Instructions: Reason For Exam: CP Primary care physician: CLAM [employer] Hospitalization Condition: Stable Disposition: DC-01 TO HOME OR SELFCARE Time spent for discharge: 32 min Core Measure Documentation - Palliative Care Palliative Care/ Comfort Measures: Not Applicable - Core Measures Any of the following diagnoses?: none Exam - Constitutional Vitals: Temp Pulse Resp BP Pulse Ox 98.2 F 69 20 112/68 98 03/10/18 15:49 03/10/18 15:49 03/10/18 15:49 03/10/18 15:49 03/10/18 15:49 General appearance: Present: no acute distress, well-nourished - EENT Eyes: Present: PERRL, EOM intact - Neck Neck: Present: supple, normal ROM - Respiratory Respiratory effort: normal Respiratory: bilateral: diminished, negative: rales, rhonchi, wheezing - Cardiovascular Rhythm: regular Heart Sounds: Present: S1 & S2 - Extremities Extremities: no ischemia, No edema - Abdominal General gastrointestinal: Present: soft, non-tender, non-distended, normal bowel sounds - Integumentary Integumentary: Present: clear, warm - Musculoskeletal Musculoskeletal: strength equal bilaterally - Psychiatric Psychiatric: appropriate mood/affect, cooperative - Neurologic Neurologic: CNII-XII intact, moves all extremities Plan Activity: advance as tolerated Diet: other (cardiac diet) Additional Instructions: If you have shortness of breath or chest pain, contact M.D. or go to emergency room Follow up with: PRIMARY CAREMD [Primary Care Provider] - 3-5 Days INDRA ASH MD [Staff Physician] - 7 Days Prescriptions: ISOSORBIDE MONOnitrate [Imdur ER] 30 mg PO QDAY #30 tablet Lisinopril [Zestril TAB] 10 mg PO QDAY #30 tablet
[2018-03-10 21:01] VITALS: BP 146/79
== END 2018-03-10 19:50 | disposition home or self-care (01) | DRG 303 ==
LOC: ED 17:24 → 4A 20:03
PROVIDERS: ADMIT Internal Medicine; ATTEND Internal Medicine
DX: I25.118 Atherosclerotic heart disease of native coronary artery with other forms of angina pectoris (principal); E44.1 Mild protein-calorie malnutrition; I95.9 Hypotension, unspecified; E11.9 Type 2 diabetes mellitus without complications; I10 Essential (primary) hypertension; E78.2 Mixed hyperlipidemia; F32.9 Major depressive disorder, single episode, unspecified; I25.9 Chronic ischemic heart disease, unspecified; I51.9 Heart disease, unspecified; Z68.31 Body mass index [BMI] 31.0-31.9, adult; Z82.49 Family history of ischemic heart disease and other diseases of the circulatory system; Z79.82 Long term (current) use of aspirin; Z79.84 Long term (current) use of oral hypoglycemic drugs; Z79.899 Other long term (current) drug therapy; I25.2 Old myocardial infarction
CPT/HCPCS: 36415; 71046; 80053; 82962; 83036; 83690; 84484; 85007; 85025; 85379; 85610; 85730; 93005; 93010; 99291; A9270-GY; J1650